=== PATIENT | female | born 1980 ===

== ENCOUNTER 2017-06-25 11:43 | Inpatient (IN) | payer MEDICARE, OTHER ==
[2017-06-25 13:40] LABS: BASO % 0.6 % (0.0-2.0); EOS # 0.1 K/uL (0.0-0.7); EOS % 4.2 % (0.0-4.0); HEMOGLOBIN 11.8 g/dL (11.0-16.0); LYMPH # 1.1 K/uL (1.0-4.3); LYMPH % 42.7 % (20.0-40.0); MEAN CELL VOLUME 92.7 fL (81.0-99.0); MEAN CORPUSCULAR HEMOGLOBIN 30.2 pg (27.0-31.0); MEAN CORPUSCULAR HGB CONC 32.6 g/dL (33.0-37.0); MEAN PLATELET VOLUME 8.5 fL (7.2-11.7); MONO # 0.2 K/uL (0.0-0.8); MONO % 7.6 % (0.0-10.0); NEUT # 1.2 K/uL (1.8-7.0); NEUT % 44.9 % (50.0-75.0); NRBC % 0.1 % (0.0-2.0); RBC 3.91 Mil/uL (3.80-5.20); RED CELL DISTRIBUTION WIDTH 12.9 % (11.5-14.5); WHITE BLOOD COUNT 2.7 K/uL (4.8-10.8)
[2017-06-25 13:55] LABS: ALB/GLOB RATIO 1.4 (1.0-2.1); ALBUMIN 3.9 g/dL (3.5-5.0); ALT/SGPT 19 U/L (9-52); AST/SGOT 29 U/L (14-36); BLOOD UREA NITROGEN 19 mg/dL (7-17); CALCIUM 8.4 mg/dl (8.6-10.4); GFR AFRICAN-AMERICAN > 60; GFR NON-AFRICAN AMERICAN > 60
[2017-06-25] MEDS ORDERED: Iodixanol 320 mg/ml 150 ml Bottle IV ONE (16:14)
--- NOTE | 2017-06-25 17:20 | C.PDOC ---
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 States that it felt "hot." Patient was evaluated at another hospital, where she had an ultrasound and instructed to follow up outpt with vascular specialist. Patient went to see Dr Morrison today, who instructed her to ED. Hx of right knee and left hip total [place] [address] Dominguez. No trauma, change in sensation, no swelling or erythema. Time Seen by Provider: 06/25/17 12:45 Chief Complaint (Nursing): Lower Extremity Problem/Injury History Per: Patient History/Exam Limitations: no limitations Past Medical History Reviewed: Historical Data, Nursing Documentation, Vital Signs Vital Signs: Last Vital Signs Temp 98.5 F 06/27/17 00:00 Pulse 57 L 06/27/17 00:00 Resp 20 06/27/17 00:00 BP 108/73 06/27/17 00:00 Pulse Ox 97 06/27/17 00:00 Family History: States: No Known Family Hx - Social History Hx Alcohol Use: No Hx Substance Use: No - Immunization History Hx Tetanus Toxoid Vaccination: Yes Hx Influenza Vaccination: Yes Hx Pneumococcal Vaccination: No Review Of Systems Constitutional: Negative for: Fever Cardiovascular: Negative for: Chest Pain Respiratory: Negative for: Shortness of Breath Gastrointestinal: Negative for: Vomiting Musculoskeletal: Positive for: Leg Pain Neurological: Negative for: Weakness, Numbness, Headache, Dizziness Physical Exam - Physical Exam Appears: Non-toxic, No Acute Distress Skin: Normal Color, Warm, Dry, No Rash Head: Atraumatic, Normacephalic Eye(s): bilateral: Normal Inspection, EOMI Nose: Normal Oral Mucosa: Moist Lips: Normal Appearing Neck: Normal ROM, Supple Chest: Symmetrical Cardiovascular: Rhythm Regular Respiratory: Normal Breath Sounds, No Accessory Muscle Use Gastrointestinal/Abdominal: Soft, No Tenderness Extremity: Normal ROM, Tenderness (diffuse to left thigh), No Pedal Edema, No Deformity, Other (healed incisions to left knee) Extremity: Left: Atraumatic Pulses: Left Dorsalis Pedis: Decreased, Right Dorsalis Pedis: Normal Neurological/Psych: Oriented x3, Normal Speech, Normal Sensation ED Course And Treatment - Laboratory Results Result Diagrams: 06/25/17 13:30 06/25/17 13:30 O2 Sat by Pulse Oximetry: 100 (RA) Pulse Ox Interpretation: Normal - CT Scan/US CTA LLE Other Rad Studies (CT/US): Read By Radiologist, Radiology Report Reviewed CT/US Interpretation: ANGIOGRAPHY ABD ILEOFEM RUNOFF Exam Date: 06/25/17. . This imaging exam was performed at [facility]. EXAM: CT Angiography Abdomen and Pelvis With Runoff to the Lower Extremities With. Intravenous Contrast. . EXAM DATE/TIME: Exam ordered 06/25/2017 1:06 PM. . CLINICAL HISTORY: 36 years old, female; Condition or disease; Peripheral vascular disease;. Additional info: Decreased pulses left leg. . TECHNIQUE: Axial computed tomographic angiography images of the abdomen, pelvis and. lower extremities with intravenous contrast using CT angiography protocol. All. CT scans at this facility use one or more dose reduction techniques, viz.: automated exposure control; ma/kV adjustment per patient size (including. targeted exams where dose is matched to indication; i.e. head) ; or iterative. reconstruction technique. 3D and MIP reconstructed images were created and reviewed. Coronal and sagittal reformatted images were created and reviewed. . CONTRAST: 120 mL of visipaque 320 administered intravenously. . COMPARISON: No relevant prior studies available. . FINDINGS: Lower thorax: Course pleural based opacity in the left lower lobe suggest. discoid atelectasis. . VASCULATURE: Aorta: No acute findings. No abdominal aortic aneurysm. No dissection. Celiac trunk and mesenteric arteries : No acute findings. No occlusion or. significant stenosis. Renal arteries: No acute findings. No occlusion or significant stenosis. . Right iliac arteries: No acute findings. No occlusion or significant. stenosis. Right femoral/popliteal arteries: No acute findings. No occlusion or. significant stenosis. Right calf/foot arteries: Motion artifact at the level of the lower legs. limits visualization of the runoff vessels just above the ankle.There is a 3. vessel runoff to the foot and ankle. . Left iliac arteries: The left external iliac artery occludes within 1 cm of. the common iliac bifurcation. Left femoral/popliteal arteries: There is reconstitution of the superficial. femoral artery via collaterals from the deep femoral artery. The superficial. femoral artery tapers mid thigh to end in a collateral. The distal superficial. femoral artery reconstitutes in the distal one third of the thigh via. collaterals.. Left calf/foot arteries: Motion artifact at the level of the lower legs. limits visualization of the runoff vessels just above the ankle.There is a 3. vessel runoff to the foot and ankle. . . ABDOMEN: Liver : Unremarkable. No mass. Gallbladder and bile ducts: Gallstones are present. No ductal dilation. Pancreas: Unremarkable. No ductal dilation. No mass. Spleen: Unremarkable. No splenomegaly. Adrenals: Unremarkable. No mass. Kidneys and ureters: A 5 mm parenchymal calcification seen in the upper pole. of the left kidney. A 3 mm calcification is noted in the midportion of the left. kidney. A 5 mm calcification is noted in the lower pole of the right kidney. These calcifications appear to be parenchymal in location.No hydronephrosis. No solid mass. Stomach and bowel: Unremarkable. No obstruction. No mucosal thickening. Appendix: No findings to suggest acute appendicitis. . PELVIS: Bladder: Unremarkable. No mass. . Reproductive: Unremarkable as visualized. . ABDOMEN, PELVIS and LOWER EXTREMITIES: Intraperitoneal space: Unremarkable. No significant fluid collection. No. free air. Bones/joints: There is a right hip prosthesis There is a left knee. prosthesis. An area of sclerosis in the left femoral head suggests. osteonecrosis. Soft tissues: Unremarkable. Lymph nodes: Unremarkable. No enlarged lymph nodes. . IMPRESSION: 1. Occlusion of the left external iliac artery with reconstitution of the SFA. via deep profunda collaterals. . 2. The left mid SFA tapers to end in a collateral vessel. Reconstitution of the. distal SFA via collaterals. . 3. 3 vessel runoff to the left foot and ankle. . 4. Normal CTA the right leg. 3 vessel runoff to the right foot and ankle. . 5. Beam hardening artifact and or motion artifact limits assessment of the left. popliteal artery and of the runoff vessels of both legs just above the ankle. . 6. Gallstones. . 7.Left renal calcifications which appear parenchymal in location. No. hydronephrosis. . 8. Osteonecrosis suggested of the left femoral head. Progress Note: CT Angio, Bloodwork ordered and reviewed. Patient treated with Toradol. Case discussed with Dr Morrison who instructed admission under Dr Abernathy with consult to Dr Clinton and Dr Flores. Case discussed with Dr Abernathy, agreed upon admission. 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 I have reviewed the chart and agree that the record accurately reflects my personal performance of the history, physical exam, medical decision making, and the department course for this patient. I have also personally directed, reviewed, and agree with the discharge instructions and disposition.
--- NOTE | 2017-06-25 18:20 | CT ---
EXAM: CT Angiography Abdomen and Pelvis With Runoff to the Lower Extremities With Intravenous Contrast EXAM DATE/TIME: Exam ordered 06/25/2017 1:06 PM CLINICAL HISTORY: 36 years old, female; Condition or disease; Peripheral vascular disease; Additional info: Decreased pulses left leg TECHNIQUE: Axial computed tomographic angiography images of the abdomen, pelvis and lower extremities with intravenous contrast using CT angiography protocol. All CT scans at this facility use one or more dose reduction techniques, viz.: automated exposure control; ma/kV adjustment per patient size (including targeted exams where dose is matched to indication; i.e. head); or iterative reconstruction technique. 3D and MIP reconstructed images were created and reviewed. Coronal and sagittal reformatted images were created and reviewed. CONTRAST: 120 mL of visipaque 320 administered intravenously. COMPARISON: No relevant prior studies available. FINDINGS: Lower thorax: Course pleural based opacity in the left lower lobe suggest discoid atelectasis. VASCULATURE: Aorta: No acute findings. No abdominal aortic aneurysm. No dissection. Celiac trunk and mesenteric arteries: No acute findings. No occlusion or significant stenosis. Renal arteries: No acute findings. No occlusion or significant stenosis. Right iliac arteries: No acute findings. No occlusion or significant stenosis. Right femoral/popliteal arteries: No acute findings. No occlusion or significant stenosis. Right calf/foot arteries: Motion artifact at the level of the lower legs limits visualization of the runoff vessels just above the ankle.There is a 3 vessel runoff to the foot and ankle. Left iliac arteries: The left external iliac artery occludes within 1 cm of the common iliac bifurcation. Left femoral/popliteal arteries: There is reconstitution of the superficial femoral artery via collaterals from the deep femoral artery. The superficial femoral artery tapers mid thigh to end in a collateral. The distal superficial femoral artery reconstitutes in the distal one third of the thigh via collaterals.. Left calf/foot arteries: Motion artifact at the level of the lower legs limits visualization of the runoff vessels just above the ankle.There is a 3 vessel runoff to the foot and ankle. ABDOMEN: Liver: Unremarkable. No mass. Gallbladder and bile ducts: Gallstones are present. No ductal dilation. Pancreas: Unremarkable. No ductal dilation. No mass. Spleen: Unremarkable. No splenomegaly. Adrenals: Unremarkable. No mass. Kidneys and ureters: A 5 mm parenchymal calcification seen in the upper pole of the left kidney. A 3 mm calcification is noted in the midportion of the left kidney. A 5 mm calcification is noted in the lower pole of the right kidney. These calcifications appear to be parenchymal in location.No hydronephrosis. No solid mass. Stomach and bowel: Unremarkable. No obstruction. No mucosal thickening. Appendix: No findings to suggest acute appendicitis. PELVIS: Bladder: Unremarkable. No mass. . Reproductive: Unremarkable as visualized. ABDOMEN, PELVIS and LOWER EXTREMITIES: Intraperitoneal space: Unremarkable. No significant fluid collection. No free air. Bones/joints: There is a right hip prosthesis There is a left knee prosthesis. An area of sclerosis in the left femoral head suggests osteonecrosis. Soft tissues: Unremarkable. Lymph nodes: Unremarkable. No enlarged lymph nodes. IMPRESSION: 1. Occlusion of the left external iliac artery with reconstitution of the SFA via deep profunda collaterals. 2. The left mid SFA tapers to end in a collateral vessel. Reconstitution of the distal SFA via collaterals 3. 3 vessel runoff to the left foot and ankle 4. Normal CTA the right leg. 3 vessel runoff to the right foot and ankle. 5. Beam hardening artifact and or motion artifact limits assessment of the left popliteal artery and of the runoff vessels of both legs just above the ankle. 6. Gallstones. 7.Left renal calcifications which appear parenchymal in location. No hydronephrosis 8. Osteonecrosis suggested of the left femoral head
[2017-06-25 21:23] VITALS: RESP 20
--- NOTE | 2017-06-25 23:43 | CP.PCM.HP ---
History of Present Illness - History of Present Illness History of Present Illness: Chief Complaint (Nursing): Lower Extremity Problem/Injury History Of Present Illness 36-year-old female, presents to the emergency department with complaints of left leg pain that started five days ago. States that it felt "hot." Patient was evaluated at another hospital, where she had an ultrasound and instructed to follow up with vascular specialist. Patient went to see Dr Morrison today, who instructed her to ED. Hx of AML x15 years in remission, right knee and left hip total [place] [address] Dominguez. No trauma, change in sensation, no swelling or erythema. Present on Admission - Present on Admission Any Indicators Present on Admission: Yes Review of Systems - Review of Systems Systems not reviewed;Unavailable: Acuity of Condition - Constitutional Constitutional: Fatigue, Lethargy, Malaise, Weakness - EENT Eyes: absent: As Per HPI, Blind Spots, Blurred Vision, Change in Vision, Decreased Night Vision, Diplopia, Discharge, Dry Eye, Exophthalmos, Floaters, Irritation, Itchy Eyes, Loss of Peripheral Vision, Pain, Photophobia, Requires Corrective Lenses, Sees Flashes, Spots in Vision, Tunnel Vision, Other Visual Disturbances, Loss of Vision, Other Ears: absent: As Per HPI, Decreased Hearing, Ear Discharge, Ear Pain, Tinnitus, Abnormal Hearing, Disequilibrium, Dizziness, Other Nose/Mouth/Throat: absent: As Per HPI, Epistaxis, Nasal Congestion, Nasal Discharge, Nasal Obstruction, Nasal Trauma, Nose Pain, Post Nasal Drip, Sinus Pain, Sinus Pressure, Bleeding Gums, Change in Voice, Dental Pain, Dry Mouth, Dysphagia, Halitosis, Hoarsness, Lip Swelling, Mouth Lesions, Mouth Pain, Odynophagia, Sore Throat, Throat Swelling, Tongue Swelling, Facial Pain, Neck Pain, Neck Mass, Other - Respiratory Respiratory: absent: As Per HPI, Cough, Dyspnea, Hemoptysis, Dyspnea on Exertion , Wheezing, Snoring, Stridor, Pain on Inspiration, Chest Congestion, Excessive Mucous Production, Change in Mucous Color, Pain with Coughing, Other - Gastrointestinal Gastrointestinal: absent: As Per HPI, Abdominal Pain, Belching, Bloating, Change in Bowel Habits, Change in Stool Character, Coffee Ground Emesis, Constipation, Cramping, Diarrhea, Dyspepsia, Dysphagia, Early Satiety, Excessive Flatus, Fecal Incontinence, Heartburn, Hematemesis, Hematochezia, Loose Stools, Melena, Nausea, Odynophagia, Temesmus, Vomiting, Other - Genitourinary Genitourinary: absent: As Per HPI, Change in Urinary Stream, Difficulty Urinating, Dysuria, Flank Pain, Hematuria, Pyuria, Nocturia, Urinary Incontinence, Urinary Frequency, Urinary Hesitance, Urinary Urgency, Voiding Freq/Small Amts, Freq UTI, Hx Renal/Bladder Calculi, Hx /Renal Surgery, Bladder Distension, Other Past Patient History - Past Social History Smoking Status: Never Smoked - HEMATOLOGICAL/ONCOLOGICAL Hx Leukemia: Yes - PSYCHIATRIC Hx Substance Use: No - SURGICAL HISTORY Hx Surgeries: Yes Other/Comment: right hip, knee repl - ANESTHESIA Hx Anesthesia: Yes Hx Anesthesia Reactions: No Hx Malignant Hyperthermia: No Meds Allergies/Adverse Reactions: Allergies Allergy/AdvReac Type Severity Reaction Status Date / Time No Known Allergies Allergy Verified 06/25/17 11:51 Physical Exam - Constitutional Appears: No Acute Distress - Head Exam Head Exam: ATRAUMATIC, NORMAL INSPECTION, NORMOCEPHALIC - Eye Exam Eye Exam: EOMI, Normal appearance, PERRL Pupil Exam: NORMAL ACCOMODATION, PERRL - Respiratory Exam Respiratory Exam: Clear to Auscultation Bilateral, NORMAL BREATHING PATTERN - Cardiovascular Exam Cardiovascular Exam: REGULAR RHYTHM - GI/Abdominal Exam GI & Abdominal Exam: Normal Bowel Sounds, Soft. absent: Tenderness - Extremities Exam Additional comments: R DP/PT pulses 2+, unable to palpate DP on L, PT 1+, foot warm - Expanded Lower Extremities Exam Left Upper Leg exam: tenderness (entire thigh tender) Knee exam: full ROM Ankle exam: FULL ROM Neuro vacular tendon exam: pulse deficit (foot warm) Results - Vital Signs Recent Vital Signs: Last Vital Signs Temp 97.9 F 06/25/17 21:21 Pulse 58 L 06/25/17 21:21 Resp 20 06/25/17 21:21 BP 116/74 06/25/17 21:21 Pulse Ox 100 06/25/17 21:21 - Labs Result Diagrams: 06/25/17 13:30 06/25/17 13:30 Labs: Laboratory Results - last 24 hr 06/25/17 06/25/17 13:30 13:30 WBC 2.7 L RBC 3.91 Hgb 11.8 Hct 36.2 MCV 92.7 MCH 30.2 MCHC 32.6 L RDW 12.9 Plt Count 155 MPV 8.5 Neut % (Auto) 44.9 L Lymph % (Auto) 42.7 H Vil[place] % (Auto) 7.6 Eos % (Auto) 4.2 H Baso % (Auto) 0.6 Neut # (Auto) 1.2 L Lymph # (Auto) 1.1 [place] # (Auto) 0.2 Eos # (Auto) 0.1 Baso # (Auto) 0.0 Sodium 145 Potassium 3.8 Chloride 110 H Carbon Dioxide 22 Anion Gap 17 BUN 19 H Creatinine 0.8 Est GFR ( Amer) > 60 Est GFR (Non-Af Amer) > 60 Random Glucose 73 Calcium 8.4 L Total Bilirubin 0.3 AST 29 ALT 19 Alkaline Phosphatase 77 Total Protein 6.7 Albumin 3.9 Globulin 2.8 Albumin/Globulin Ratio 1.4 Assessment & Plan (1) Acute myeloid leukemia in remission Status: Acute (2) 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
[2017-06-26] MEDS ORDERED: Pneumococcal 23-Valent Vaccine IM ONE (00:12)
[2017-06-26] MEDS ORDERED: Influenza Vaccine 60 mcg/0.5 mL SYR (4YR UP) IM ONE (00:12)
--- NOTE | 2017-06-26 13:10 | RAD ---
PROCEDURE: Radiographs of the pelvis and bilateral hips HISTORY: left hip AVN, s/p right THR COMPARISON: None. FINDINGS: BONES: Pelvis: Unremarkable. Right hip:Prior right hip arthroplasty. Left hip:Femoral head sclerosis. JOINTS: Right hip: Prior right hip arthroplasty. Left hip: Unremarkable. Sacroiliac Joints: Unremarkable. Pubic symphysis: Unremarkable. SOFT TISSUES: Normal. OTHER FINDINGS: Partially imaged orthopedic hardware within the femoral diaphysis. IMPRESSION: Prior right hip arthroplasty. Sclerosis within the left femoral head may represent avascular necrosis.
--- NOTE | 2017-06-26 13:30 | CP.PCM.CON ---
History of Present Illness - History of Present Illness History of Present Illness: Orthopedic consultation Dr. Bueno 36F complains of left thigh pain x several weeks, worsening. Pain is severe. She denies any trauma or falls. She says she went to the ER 6 days ago, and they did exam and told her to follow up with vascular surgeon as outpt. She saw Dr. Morrison in office yesterday who noted decreased pulses on left, and sent patient to ER for angiogram. Denies numbness/tingling. Denies CP/SOB/dizziness. Denies peripheral swelling. Denies any hip/groin pain, says the pain is in her thigh Patient has hx of R THR and L distal femoral replacement (patient states due to bone loss after chemo 2004) AML (remission x 15 years) Review of Systems - Review of Systems All systems: reviewed and no additional remarkable complaints except - Constitutional Constitutional: As Per HPI - Cardiovascular Cardiovascular: As Per HPI - Respiratory Respiratory: As Per HPI - Musculoskeletal Musculoskeletal: As Per HPI - Integumentary Integumentary: As Per HPI - Neurological Neurological: As Per HPI - Hematologic/Lymphatic Hematologic: absent: As Per HPI, Easy Bleeding, Easy Bruising, Lymphadenopathy, Other Past Patient History - Past Medical History & Family History Past Medical History?: Yes Past Family History: Reviewed and not pertinent - Past Social History Smoking Status: Never Smoked - CARDIAC Hx Cardiac Disorders: No - PULMONARY Hx Respiratory Disorders: No - NEUROLOGICAL Hx Neurological Disorder: No - HEENT Hx HEENT Problems: No - RENAL Hx Chronic Kidney Disease: No - ENDOCRINE/METABOLIC Hx Endocrine Disorders: No - HEMATOLOGICAL/ONCOLOGICAL Hx Leukemia: Yes (AML, remission 15 yrs) - INTEGUMENTARY Hx Dermatological Problems: No - MUSCULOSKELETAL/RHEUMATOLOGICAL Hx Falls: No - GASTROINTESTINAL Hx Gastrointestinal Disorders: No - GENITOURINARY/GYNECOLOGICAL Hx Genitourinary Disorders: No - PSYCHIATRIC Hx Substance Use: No - SURGICAL HISTORY Hx Surgeries: Yes Hx Joint Replacement: Yes (R THR, L distal femoral replacement) - ANESTHESIA Hx Anesthesia: Yes Hx Anesthesia Reactions: No Hx Malignant Hyperthermia: No Meds Allergies/Adverse Reactions: Allergies Allergy/AdvReac Type Severity Reaction Status Date / Time No Known Allergies Allergy Verified 06/25/17 11:51 - Medications Medications: Current Medications Acetaminophen (Tylenol 325mg Tab) 650 mg PO Q6 PRN PRN Reason: Pain, Mild (1-3) Heparin Sodium (Porcine) (Heparin) 5,000 units SC Q8 [facility] Last Admin: 06/26/17 06:55 Dose: 5,000 units Rosuvastatin Calcium (Crestor) 5 mg PO HS [facility] Last Admin: 06/25/17 22:41 Dose: 5 mg Physical Exam - Constitutional Appears: Well, No Acute Distress - Head Exam Head Exam: ATRAUMATIC - Respiratory Exam Respiratory Exam: NORMAL BREATHING PATTERN - Cardiovascular Exam Additional comments: R DP/PT pulses 2+, unable to palpate DP on L, PT 1+, foot warm - Expanded Lower Extremities Exam Left Upper Leg exam: tenderness (entire thigh tender) Knee exam: full ROM Ankle exam: FULL ROM Neuro vacular tendon exam: pulse deficit (foot warm) - Neurological Exam Neurological exam: Alert, Oriented x3 - Psychiatric Exam Psychiatric exam: Normal Affect, Normal Mood - Skin Skin Exam: Dry, Intact, Normal Color, Warm Additional comments: Left knee and right hip well healed Results - Vital Signs Recent Vital Signs: Last Vital Signs Temp 97.7 F 06/26/17 07:51 Pulse 59 L 06/26/17 07:51 Resp 20 06/26/17 07:51 BP 123/68 06/26/17 07:51 Pulse Ox 98 06/26/17 07:51 - Labs Result Diagrams: 06/25/17 13:30 06/25/17 13:30 Labs: Laboratory Results - last 24 hr 06/25/17 06/25/17 06/26/17 13:30 13:30 07:22 WBC 2.7 L RBC 3.91 Hgb 11.8 Hct 36.2 MCV 92.7 MCH 30.2 MCHC 32.6 L RDW 12.9 Plt Count 155 MPV 8.5 Neut % (Auto) 44.9 L Lymph % (Auto) 42.7 H [place] % (Auto) 7.6 Eos % (Auto) 4.2 H Baso % (Auto) 0.6 Neut # (Auto) 1.2 L Lymph # (Auto) 1.1 [place] # (Auto) 0.2 Eos # (Auto) 0.1 Baso # (Auto) 0.0 Sodium 145 Potassium 3.8 Chloride 110 H Carbon Dioxide 22 Anion Gap 17 BUN 19 H Creatinine 0.8 Est GFR ( Amer) > 60 Est GFR (Non-Af Amer) > 60 Random Glucose 73 Calcium 8.4 L Total Bilirubin 0.3 AST 29 ALT 19 Alkaline Phosphatase 77 Total Protein 6.7 Albumin 3.9 Globulin 2.8 Albumin/Globulin Ratio 1.4 Triglycerides 68 Cholesterol 182 LDL Cholesterol Direct 86 HDL Cholesterol 57 TSH 3rd Generation 2.34 - Impressions Impression: Patient Name / ID : DINA ÁLVAREZ / [id number] Exam Date : 06/26/2017 11:45:08 ( Approved ) Study Comment : Sex / Age : F / 36Y Creator : Dileep Moura MD Dictator : Dileep Moura MD Whale Trainer : [employer] Drafter : Dileep Moura MD Approver2 : Report Date : 06/26/2017 13:04:10 My Comment : PROCEDURE: Radiographs of the pelvis and bilateral hips HISTORY: left hip AVN, s/p right THR COMPARISON: None. FINDINGS: BONES: Pelvis: Unremarkable. Right hip:Prior right hip arthroplasty. Left hip:Femoral head sclerosis. JOINTS: Right hip: Prior right hip arthroplasty. Left hip: Unremarkable. Sacroiliac Joints: Unremarkable. Pubic symphysis: Unremarkable. SOFT TISSUES: Normal. OTHER FINDINGS: Partially imaged orthopedic hardware within the femoral diaphysis. IMPRESSION: Prior right hip arthroplasty. Sclerosis within the left femoral head may represent avascular necrosis. Patient Name / ID : DINA ÁLVAREZ / [id number] Exam Date : 06/26/2017 12:59:36 ( Approved ) Study Comment : Sex / Age : F / Y Creator : Dileep Moura MD Dictator : Dileep Moura MD Whale Trainer : [employer] Drafter : Dileep Moura MD Approver2 : Report Date : 06/26/2017 13:35:13 My Comment : PROCEDURE: Left Knee Radiographs. HISTORY: Pain. COMPARISON: None. FINDINGS: BONES: Prior left knee arthroplasty with distal femoral resection. Hardware appears intact. No periprosthetic lucency. JOINT EFFUSION: None. OTHER FINDINGS: None. IMPRESSION: Prior left knee arthroplasty with distal femoral resection. No gross evidence of hardware complication atient Name / ID : DINA ÁLVAREZ / [id number] Exam Date : 06/26/2017 13:04:03 ( Approved ) Study Comment : Sex / Age : F / 36Y Creator : Dileep Moura MD Dictator : Dileep Moura MD Whale Trainer : [employer] Drafter : Dileep Moura MD Approver2 : Report Date : 06/26/2017 13:35:47 My Comment : PROCEDURE: Left Femur Radiographs. HISTORY: leg pain, s/p TKR COMPARISON: None. TECHNIQUE: AP and Lateral Radiographs of the left femur. FINDINGS: FEMUR: Prior left knee arthroplasty with distal femoral resection. No periprosthetic lucency. SOFT TISSUES: Normal. OTHER FINDINGS: None. IMPRESSION: Prior left knee arthroplasty with distal femoral resection. No gross evidence hardware complication. Assessment & Plan (1) Avascular necrosis of left femoral head Assessment and Plan: incidental finding advised patient of risk of collapse and need for surgery in future no groin pain could be referred pain to thigh, but pain is most likely due vascular reasons femur/knee films ordered to evaluate prosthesis, fracture not clinically suspected. venous dopplers ordered Dr. Morrison on board d/w Dr. Bueno, agrees with above Status: Acute
--- NOTE | 2017-06-26 13:41 | RAD ---
PROCEDURE: Left Knee Radiographs. HISTORY: Pain. COMPARISON: None. FINDINGS: BONES: Prior left knee arthroplasty with distal femoral resection. Hardware appears intact. No periprosthetic lucency. JOINT EFFUSION: None. OTHER FINDINGS: None. IMPRESSION: Prior left knee arthroplasty with distal femoral resection. No gross evidence of hardware complication
--- NOTE | 2017-06-26 13:42 | RAD ---
PROCEDURE: Left Femur Radiographs. HISTORY: leg pain, s/p TKR COMPARISON: None. TECHNIQUE: AP and Lateral Radiographs of the left femur. FINDINGS: FEMUR: Prior left knee arthroplasty with distal femoral resection. No periprosthetic lucency. SOFT TISSUES: Normal. OTHER FINDINGS: None. IMPRESSION: Prior left knee arthroplasty with distal femoral resection. No gross evidence hardware complication.
--- NOTE | 2017-06-26 14:55 | VASCLAB ---
PROCEDURE: Lower Extremity Venous Duplex Exam. HISTORY: pain and swelling r/o DVT PRIORS: None. TECHNIQUE: Bilateral common femoral, femoral, popliteal and posterior tibial, peroneal and great saphenous veins were evaluated. Flow was assessed with color Doppler, compressibility, assessment of phasic flow and augmentation response. Report prepared by Pablo Coburn, ROBINA, RVT FINDINGS: RIGHT: 1. Common Femoral Vein: 1.1. Compressibility - Fully compressible: Thrombus - None : Flow - Phasic: Augmentation -Normal: Reflux - None. 2. Femoral Vein: 2.1. Compressibility - Fully compressible: Thrombus - None : Flow - Phasic: Augmentation -Normal: Reflux - None. 3. Popliteal Vein: 3.1. Compressibility - Fully compressible: Thrombus - None : Flow - Phasic: Augmentation -Normal: Reflux - None. 4. Posterior Tibial Vein: 4.1. Compressibility - Fully compressible: Thrombus - None: Flow - Phasic: Augmentation -Normal: Reflux - None. 5. Peroneal Vein: 5.1. Compressibility - Fully compressible: Thrombus - None: Flow - Phasic: Augmentation -Normal: Reflux - None. 6. Great Saphenous Vein: 6.1. Compressibility - Fully compressible: Thrombus - None: Flow - Phasic: Augmentation - Normal: Reflux - None. LEFT: 1. Common Femoral Vein: 1.1. Compressibility - Fully compressible: Thrombus - None: Flow - Phasic: Augmentation -Normal: Reflux - None. 2. Femoral Vein: 2.1. Compressibility - Fully compressible: Thrombus - None: Flow - Phasic: Augmentation -Normal: Reflux - None. 3. Popliteal Vein: 3.1. Compressibility - Fully compressible: Thrombus - None : Flow - Phasic: Augmentation -Normal: Reflux - None. 4. Posterior Tibial Vein: 4.1. Compressibility - Fully compressible: Thrombus - None: Flow - Phasic: Augmentation -Normal: Reflux - None. 5. Peroneal Vein: 5.1. Compressibility - Fully compressible: Thrombus - None: Flow - Phasic: Augmentation -Normal: Reflux - None. 6. Great Saphenous Vein: 6.1. Compressibility - Fully compressible: Thrombus - None: Flow - Phasic: Augmentation - Normal: Reflux - None. OTHER FINDINGS: Right: None significant. Left: None significant. IMPRESSION: Right: No evidence of deep or superficial vein thrombosis of the right lower extremity. Normal valve function noted of the right side. Left: No evidence of deep or superficial vein thrombosis of the left lower extremity. Normal valve function noted of the left side.
--- NOTE | 2017-06-26 23:15 | CP.PCM.PN ---
Subjective - Date & Time of Evaluation Date of Evaluation: 06/26/17 Time of Evaluation: 17:20 - Subjective Subjective: Pt is seen and examined today, h/o AML according to her she is in remission since last 15 years, c/o left ;eg pain, which has improbved since yesterday, CT angiogram was done yesterday which shows major occulusions Objective - Vital Signs/Intake and Output Vital Signs (last 24 hours): Temp Pulse Resp BP Pulse Ox 98.3 F 52 L 20 105/67 99 06/26/17 15:00 06/26/17 15:00 06/26/17 15:00 06/26/17 15:00 06/26/17 15:00 Intake and Output: 06/26/17 06/27/17 18:59 06:59 Intake Total 630 Balance 630 - Medications Medications: Current Medications Acetaminophen (Tylenol 325mg Tab) 650 mg PO Q6 PRN PRN Reason: Pain, Mild (1-3) Heparin Sodium (Porcine) (Heparin) 5,000 units SC Q8 [facility] Last Admin: 06/26/17 21:20 Dose: 5,000 units Rosuvastatin Calcium (Crestor) 5 mg PO HS [facility] Last Admin: 06/26/17 21:20 Dose: 5 mg - Labs Labs: 06/25/17 13:30 06/25/17 13:30 - Constitutional Appears: No Acute Distress - Head Exam Head Exam: ATRAUMATIC, NORMAL INSPECTION, NORMOCEPHALIC - Eye Exam Eye Exam: EOMI, Normal appearance, PERRL Pupil Exam: NORMAL ACCOMODATION, PERRL - Respiratory Exam Respiratory Exam: Clear to Ausculation Bilateral, NORMAL BREATHING PATTERN - Cardiovascular Exam Cardiovascular Exam: REGULAR RHYTHM, +S1, +S2. absent: Murmur - GI/Abdominal Exam GI & Abdominal Exam: Soft, Normal Bowel Sounds. 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
[2017-06-27 06:39] LABS: BASO % 0.6 % (0.0-2.0); EOS # 0.1 K/uL (0.0-0.7); EOS % 3.1 % (0.0-4.0); HEMOGLOBIN 11.8 g/dL (11.0-16.0); LYMPH # 1.6 K/uL (1.0-4.3); LYMPH % 47.8 % (20.0-40.0); MEAN CELL VOLUME 91.9 fL (81.0-99.0); MEAN CORPUSCULAR HEMOGLOBIN 30.4 pg (27.0-31.0); MEAN CORPUSCULAR HGB CONC 33.1 g/dL (33.0-37.0); MEAN PLATELET VOLUME 7.5 fL (7.2-11.7); MONO # 0.3 K/uL (0.0-0.8); MONO % 8.8 % (0.0-10.0); NEUT # 1.3 K/uL (1.8-7.0); NEUT % 39.7 % (50.0-75.0); NRBC % 0.1 % (0.0-2.0); RBC 3.89 Mil/uL (3.80-5.20); RED CELL DISTRIBUTION WIDTH 12.6 % (11.5-14.5); WHITE BLOOD COUNT 3.3 K/uL (4.8-10.8)
[2017-06-27 07:13] LABS: INR 1.1; PROTHROMBIN TIME 11.8 SECONDS (9.7-12.2)
[2017-06-27 08:59] VITALS: BP 106/65; PULSE 59; TEMP 98.3; O2SAT 96
--- NOTE | 2017-06-27 11:27 | CP.PCM.PN ---
Subjective - Date & Time of Evaluation Date of Evaluation: 06/27/17 Time of Evaluation: 07:30 - Subjective Subjective: Patient states pain in leg is unchanged. No new complaints. Review of Systems - Review of Systems All systems: reviewed and no additional remarkable complaints except - Cardiovascular Cardiovascular: UNREMARKABLE - Respiratory Respiratory: UNREMARKABLE - Gastrointestinal Gastrointestinal: UNREMARKABLE - Musculoskeletal Musculoskeletal: As Par HPI - Neurological Neurological: UNREMARKABLE - Hematologic/Lymphatic Hematologic: UNREMARKABLE Objective - Vital Signs/Intake and Output Vital Signs (last 24 hours): Temp Pulse Resp BP Pulse Ox 98.3 F 59 L 20 106/65 96 06/27/17 08:06 06/27/17 08:06 06/27/17 08:06 06/27/17 08:06 06/27/17 08:06 - Medications Medications: Current Medications Acetaminophen (Tylenol 325mg Tab) 650 mg PO Q6 PRN PRN Reason: Pain, Mild (1-3) Heparin Sodium (Porcine) (Heparin) 5,000 units SC Q8 [facility] Last Admin: 06/27/17 06:30 Dose: 5,000 units Rosuvastatin Calcium (Crestor) 5 mg PO HS [facility] Last Admin: 06/26/17 21:20 Dose: 5 mg - Labs Labs: 06/27/17 06:27 06/25/17 13:30 PT 11.8 SECONDS (9.7-12.2) 06/27/17 06:27 INR 1.1 06/27/17 06:27 - Constitutional Appears: Well, No Acute Distress - Head Exam Head Exam: ATRAUMATIC - Cardiovascular Exam Additional comments: calves soft NT neg homans - Extremities Exam Additional comments: No swelling to LE no change in pulses foot warm +cap refill - Neurological Exam Neurological Exam: Alert, Awake, Oriented x3 Neuro motor strength exam: Right Lower Extremity: 5 (+ROM ankle DF/PF/knee flex/ ext/hip flex/ext) - Psychiatric Exam Psychiatric exam: Normal Affect, Normal Mood - Skin Skin Exam: Dry, Intact, Normal Color, Warm Assessment and Plan (1) Avascular necrosis of left femoral head Assessment & Plan: incidental finding currently asymptomatic no orthopedic intervention indicated at this time for vascular follow up for arterial thrombus defer PT to vascular Pt to follow up with private ortho as outpatient d/w Dr. Bueno, agrees with above Status: Acute
[2017-06-27] MEDS ORDERED: Enoxaparin 60 mg Syringe SC ONE (12:01)
--- NOTE | 2017-06-27 12:37 | PCM.IRP ---
History of Present Illness - History of Present Illness History of Present Illness: IR consulted for revascularization of Ms. Kemp. 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 The [place] external artery is atretic. The internal iliac is robust and there is a large collateral pathway involving the lateral sacral artery and gluteal artery to the SFA. The inferior epigastric artery also fills the common femoral. The [place] SFA is small. There is chronic occlusion of the mid-distal SFA. There is 3 vessel run off. Based on findings on CTA: There is no role for endovascular repair. 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 Objective - Vital Signs/Intake and Output Vital Signs (last 24 hours): Vital Signs - 24 hr 06/26/17 06/27/17 06/27/17 15:00 00:00 03:43 Temperature 98.3 F 98.5 F Pulse Rate 52 L 57 L Respiratory 20 20 Rate Blood Pressure 105/67 108/73 O2 Sat by Pulse 99 97 100 Oximetry 06/27/17 08:06 Temperature 98.3 F Pulse Rate 59 L Respiratory 20 Rate Blood Pressure 106/65 O2 Sat by Pulse 96 Oximetry Intake and Output (last 12 hours): Intake & Output 06/26/17 06/27/17 06/27/17 18:59 06:59 18:59 Intake Total 630 Balance 630 Intake: Oral 630 Other: # Voids Urine, Voided 2 1 # Bowel Movements 0 - Medications Medications: Current Medications Acetaminophen (Tylenol 325mg Tab) 650 mg PO Q6 PRN PRN Reason: Pain, Mild (1-3) Aspirin (Aspirin Chewable) 81 mg PO DAILY [facility] Rosuvastatin Calcium (Crestor) 5 mg PO [facility] Last Admin: 06/26/17 21:20 Dose: 5 mg - Labs Labs (last 24 hours): Laboratory Results - last 24 hr 06/27/17 06/27/17 06:27 06:27 WBC 3.3 L RBC 3.89 Hgb 11.8 Hct 35.7 MCV 91.9 MCH 30.4 MCHC 33.1 RDW 12.6 Plt Count 160 MPV 7.5 Neut % (Auto) 39.7 L Lymph % (Auto) 47.8 H [place] % (Auto) 8.8 Eos % (Auto) 3.1 Baso % (Auto) 0.6 Neut # (Auto) 1.3 L Lymph # (Auto) 1.6 [place] # (Auto) 0.3 Eos # (Auto) 0.1 Baso # (Auto) 0.0 ESR 16 PT 11.8 INR 1.1
--- NOTE | 2017-06-27 21:33 | CP.PCM.CON ---
History of Present Illness - History of Present Illness History of Present Illness: 36 year old female with a history of AML dx 2001 s/p induction chemotherapy, followed by MUD PBSCT, in remission, sent to the ER for pain in her legs and diminished pulse on the left, with angiogram suggesting occlusion of left external iliac artery. 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 She notes she has had weakening of her bones from chemo and has had a right THR and left knee replacement. Past medical history: AML Past surgical history: right THR, left knee replacement. Family history: Denies hematologic and oncologic problems Social history: Denies tobacco, alcohol, and illicit drug use. Allergies: NKA Review of systems: All remaining review of systems including HEENT, cardiovascular, respiratory, gastrointestinal, genitourinary, musculoskeletal, dermatologic, neurologic, and psychiatric are negative unless mentioned in the HPI. Past Patient History - Past Medical History & Family History Past Medical History?: Yes Past Family History: Reviewed and not pertinent - Past Social History Smoking Status: Never Smoked - CARDIAC Hx Cardiac Disorders: No - PULMONARY Hx Respiratory Disorders: No - NEUROLOGICAL Hx Neurological Disorder: No - HEENT Hx HEENT Problems: No - RENAL Hx Chronic Kidney Disease: No - ENDOCRINE/METABOLIC Hx Endocrine Disorders: No - HEMATOLOGICAL/ONCOLOGICAL Hx Leukemia: Yes - INTEGUMENTARY Hx Dermatological Problems: No - MUSCULOSKELETAL/RHEUMATOLOGICAL Hx Falls: No - GASTROINTESTINAL Hx Gastrointestinal Disorders: No - GENITOURINARY/GYNECOLOGICAL Hx Genitourinary Disorders: No - PSYCHIATRIC Hx Substance Use: No - SURGICAL HISTORY Hx Surgeries: Yes Other/Comment: right hip, knee repl - ANESTHESIA Hx Anesthesia: Yes Hx Anesthesia Reactions: No Hx Malignant Hyperthermia: No Meds Home Medications: Home Medication List Medication Instructions Recorded Confirmed Type Aspirin [Aspirin Chewable] 81 mg PO DAILY chew 06/27/17 Rx Allergies/Adverse Reactions: Allergies Allergy/AdvReac Type Severity Reaction Status Date / Time No Known Allergies Allergy Verified 06/25/17 11:51 Physical Exam - Head Exam Head Exam: ATRAUMATIC - Eye Exam Eye Exam: Normal appearance - ENT Exam ENT Exam: Mucous Membranes Dry - Respiratory Exam Respiratory Exam: NORMAL BREATHING PATTERN - Cardiovascular Exam Cardiovascular Exam: +S1, +S2 - GI/Abdominal Exam GI & Abdominal Exam: Normal Bowel Sounds - Extremities Exam Extremities exam: Positive for: normal inspection - Neurological Exam Neurological exam: Oriented x3 - Psychiatric Exam Psychiatric exam: Normal Affect, Normal Mood Results - Vital Signs Recent Vital Signs: Last Vital Signs Temp 98.3 F 06/27/17 08:06 Pulse 59 L 06/27/17 08:06 Resp 20 06/27/17 08:06 BP 106/65 06/27/17 08:06 Pulse Ox 96 06/27/17 08:06 - Labs Result Diagrams: 06/27/17 06:27 06/25/17 13:30 Labs: Laboratory Results - last 24 hr 06/27/17 06/27/17 06:27 06:27 WBC 3.3 L RBC 3.89 Hgb 11.8 Hct 35.7 MCV 91.9 MCH 30.4 MCHC 33.1 RDW 12.6 Plt Count 160 MPV 7.5 Neut % (Auto) 39.7 L Lymph % (Auto) 47.8 H [place] % (Auto) 8.8 Eos % (Auto) 3.1 Baso % (Auto) 0.6 Neut # (Auto) 1.3 L Lymph # (Auto) 1.6 [place] # (Auto) 0.3 Eos # (Auto) 0.1 Baso # (Auto) 0.0 ESR 16 PT 11.8 INR 1.1 Assessment & Plan (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 Status: Acute
--- NOTE | 2017-06-27 23:16 | CP.PCM.DIS ---
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 Hospital Course - Lab Results Lab Results: Most Recent Lab Values WBC 3.3 K/uL (4.8-10.8) L 06/27/17 06:27 RBC 3.89 Mil/uL (3.80-5.20) 06/27/17 06:27 Hgb 11.8 g/dL (11.0-16.0) 06/27/17 06:27 Hct 35.7 % (34.0-47.0) 06/27/17 06:27 MCV 91.9 fL (81.0-99.0) 06/27/17 06:27 MCH 30.4 pg (27.0-31.0) 06/27/17 06:27 MCHC 33.1 g/dL (33.0-37.0) 06/27/17 06:27 RDW 12.6 % (11.5-14.5) 06/27/17 06:27 Plt Count 160 K/uL (130-400) 06/27/17 06:27 MPV 7.5 fL (7.2-11.7) 06/27/17 06:27 Neut % (Auto) 39.7 % (50.0-75.0) L 06/27/17 06:27 Lymph % (Auto) 47.8 % (20.0-40.0) H 06/27/17 06:27 [place] % (Auto) 8.8 % (0.0-10.0) 06/27/17 06:27 Eos % (Auto) 3.1 % (0.0-4.0) 06/27/17 06:27 Baso % (Auto) 0.6 % (0.0-2.0) 06/27/17 06:27 Neut # (Auto) 1.3 K/uL (1.8-7.0) L 06/27/17 06:27 Lymph # (Auto) 1.6 K/uL (1.0-4.3) 06/27/17 06:27 [place] # (Auto) 0.3 K/uL (0.0-0.8) 06/27/17 06:27 Eos # (Auto) 0.1 K/uL (0.0-0.7) 06/27/17 06:27 Baso # (Auto) 0.0 K/uL (0.0-0.2) 06/27/17 06:27 ESR 16 mm/hr (0-20) 06/27/17 06:27 PT 11.8 SECONDS (9.7-12.2) 06/27/17 06:27 INR 1.1 06/27/17 06:27 Sodium 145 mmol/L (132-148) 06/25/17 13:30 Potassium 3.8 mmol/L (3.6-5.2) 06/25/17 13:30 Chloride 110 mmol/L (98-107) H 06/25/17 13:30 Carbon Dioxide 22 mmol/L (22-30) 06/25/17 13:30 Anion Gap 17 (10-20) 06/25/17 13:30 BUN 19 mg/dL (7-17) H 06/25/17 13:30 Creatinine 0.8 mg/dL (0.7-1.2) 06/25/17 13:30 Est GFR ( Amer) > 60 06/25/17 13:30 Est GFR (Non-Af Amer) > 60 06/25/17 13:30 Random Glucose 73 mg/dL (65-105) 06/25/17 13:30 Calcium 8.4 mg/dl (8.6-10.4) L 06/25/17 13:30 Total Bilirubin 0.3 mg/dL (0.2-1.3) 06/25/17 13:30 AST 29 U/L (14-36) 06/25/17 13:30 ALT 19 U/L (9-52) 06/25/17 13:30 Alkaline Phosphatase 77 U/L (38-126) 06/25/17 13:30 Total Protein 6.7 g/dL (6.3-8.3) 06/25/17 13:30 Albumin 3.9 g/dL (3.5-5.0) 06/25/17 13:30 Globulin 2.8 gm/dL (2.2-3.9) 06/25/17 13:30 Albumin/Globulin Ratio 1.4 (1.0-2.1) 06/25/17 13:30 Triglycerides 68 mg/dL (0-149) 06/26/17 07:22 Cholesterol 182 mg/dL (0-199) 06/26/17 07:22 LDL Cholesterol Direct 86 mg/dL (0-129) 06/26/17 07:22 HDL Cholesterol 57 mg/dL (30-70) 06/26/17 07:22 TSH 3rd Generation 2.34 mIU/L (0.46-4.68) 06/26/17 07:22 - Hospital Course Hospital Course: Pt seen and examined, is stable for discharge was diagnosed with Avascular necrosis of left femoral head which was an incidental finding, currently asymptomatic no orthopedic intervention indicated at this time for vascular follow up for arterial thrombus defer PT to vascular Pt to follow up with private ortho as outpatient d/w Dr. Bueno, agrees with above Discharge Exam - Head Exam Head Exam: ATRAUMATIC Discharge Plan - Follow Up Plan Condition: STABLE Disposition: HOME/ ROUTINE Instructions: Leukemia, Adult (DC), Aseptic Necrosis of the Hip (DC) Additional Instructions: FOLLOW UP WITH PMD IN 1 WEEK CONTINUE WITH BABY ASPIRIN DAILY Referrals: Vasyl Abernathy MD [Staff Provider] - Ling Veras [Medical Doctor] -
== END 2017-06-27 16:59 | disposition home or self-care (01) | DRG 300 ==
LOC: C.ER 11:43 → C.9E 18:47 → C.3T 19:22
PROVIDERS: ADMIT Internal Medicine; ATTEND Internal Medicine
DX: I74.5 Embolism and thrombosis of iliac artery (principal); M87.852 Other osteonecrosis, left femur; C92.01 Acute myeloblastic leukemia, in remission; D70.9 Neutropenia, unspecified; Z96.641 Presence of right artificial hip joint; Z96.652 Presence of left artificial knee joint; Z92.21 Personal history of antineoplastic chemotherapy; Z79.82 Long term (current) use of aspirin